=== PATIENT | female | born 1960 | race Caucasian/White ===

== ENCOUNTER → 2018-05-09 | Day surgery (SDC) | payer OTHER ==
[2008-03-23 17:24] VITALS: BP 132/75
[~2018-05-09] MED LIST: BACTRIM DS TAB1 EACH PO; NORCO 5-325 TA1 EACH PO
--- NOTE | 2018-05-15 09:06 | Operative Report ---
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 We discussed the specific risks including but not limited to infection bleeding pain numbness seroma hematoma asymmetry need for additional surgery dissatisfaction with implant and failure to achieve desired planned results. She was marked in standing position. She was brought to the operating and placed supine on the table. Intravenous antibiotics were given following the placement of Venodyne boots. General anesthesia was established and the chest was prepped and draped in usual sterile fashion. Ioban was used around the periphery. Inframammary incisions were used and deepened and the implants were removed finding them to be 300 cc intact bilaterally. The folds were distorted and there was sutured in place to the deep fascia and periosteum using nonabsorbable sutures bilaterally. This was done after using a suture from the sternal notch capsulectomies and release of scar and edge of pectoralis was done to provide laxity to the anterior soft tissues. Gummy bear implants were used to improve the superior pole. Of note no touch technique was used account of final triple antibiotic and Betadine bath as well as irrigation to the pocket and straight Betadine to the skin on multiple occasions. 3 layer closure was carried out of the incisions. 310 cc implants were used bilaterally per to align the repair.
== END ==
LOC: STS 02:51
DX: N65.1 Disproportion of reconstructed breast (principal); Z85.3 Personal history of malignant neoplasm of breast; T85.44XA Capsular contracture of breast implant, initial encounter; Z22.322 Carrier or suspected carrier of Methicillin resistant Staphylococcus aureus; I10 Essential (primary) hypertension; F17.200 Nicotine dependence, unspecified, uncomplicated
CPT/HCPCS: 88305; C1789; J0131; J0690; J1580; J2250; J2405; J3490